=== PATIENT | female | born 1995 | race African-American/Black ===

== ENCOUNTER 2019-12-15 06:58 | Emergency (ER) | payer OTHER ==
[~2019-12-15] VITALS: Ht 157.5 cm; Wt 87.7 kg
[2019-12-15 07:03] VITALS: BP 120/79; TEMP 97.7
[2019-12-15] MEDS ORDERED: PREDNISONE20 MG PO (07:26)
[2019-12-15] MEDS ORDERED: AMOXICILLIN 8751 TAB PO (07:26)
[2019-12-15 07:37] VITALS: PULSE 92
== END 2019-12-15 07:38 | disposition home or self-care (01) ==
LOC: COL.ER 06:58
DX: M79.89 Other specified soft tissue disorders (principal)